=== PATIENT | male | born 1985 | race Caucasian/White ===

== ENCOUNTER 2023-11-14 07:09 | Outpatient (CLI) | payer BC, SELFPAY ==
--- NOTE | 2023-11-14 07:15 | CRLHL7_ITS ---
For Patients: As a result of the 21st Century Cures Act, medical imaging exams and procedure reports are released immediately into your electronic medical record. You may view this report before your referring provider. If you have questions, please contact your health care provider. EXAM: MRI OF THE LEFT KNEE, WITHOUT CONTRAST CLINICAL INDICATION: Left knee pain. COMPARISON PLAIN FILMS: None available at time of interpretation. COMPARISON CROSS-SECTIONAL IMAGING STUDIES: None available at time of interpretation. TECHNICAL: Axial, sagittal and coronal T1, PD, PD FS and T2 FS images. FINDINGS: MEDIAL COMPARTMENT: Medial Meniscus: Complex tear of the body of the medial meniscus which is primarily high-grade radial tear and an oblique horizontal component extending to the tibial articular surface. Articular Cartilage: Moderate chondral thinning and fissuring in the medial aspect of the medial compartment (grade 3). - LATERAL COMPARTMENT: Lateral Meniscus: Normal size and morphology without tear. Articular Cartilage: Articular surfaces appear smooth without focal articular cartilage defect or subchondral marrow changes. - PATELLOFEMORAL COMPARTMENT: Articular Cartilage: 0.6 cm focal mild chondral thinning in the lateral patellar facet (grade 2). - CRUCIATE LIGAMENTS: Anterior Cruciate Ligament: Normal. Posterior Cruciate Ligament: Normal. - MEDIAL COLLATERAL LIGAMENT AND POSTEROMEDIAL CORNER COMPLEX: Medial Collateral Ligament: Normal. Medial Head of the Gastrocnemius and Semimembranosus Tendons: Normal. - LATERAL COLLATERAL LIGAMENT COMPLEX AND POSTEROLATERAL CORNER COMPLEX: Fibular Collateral Ligament: Normal. Distal Biceps Femoris Tendon Complex: Normal. Iliotibial Band: Normal. Popliteus Tendon: Normal. Posterolateral Corner Capsule: Normal. - EXTENSOR MECHANISM: Distal Quadriceps Tendon: Normal. Patellar Tendon: Normal. Medial Patellar Retinaculum and Medial Patellofemoral Ligament: Normal. Lateral Patellar Retinaculum: Normal. Normal patellar alignment. No patella heidi. Normal trochlear depth. Normal lateral trochlear inclination. - JOINT SPACE: Effusion: Trace knee joint effusion. Small popliteal cyst. Joint Bodies: None seen. - OSSEOUS STRUCTURES: No fracture, marrow edema or marrow replacement process. - PERIARTICULAR SOFT TISSUES: Periarticular Cysts or Ganglia: None. Bursae: No prepatellar, superficial infrapatellar, deep infrapatellar, pes anserinus or semimembranosus/MCL bursitis. Musculature: No muscle atrophy or muscle edema. Subcutaneous and Soft Tissues: No subcutaneous or soft tissue mass, edema or fluid collection. Neurovascular Structures: Normal. IMPRESSION: 1. High-grade complex tear of the body of the medial meniscus. 2. 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 3. Small focal area of mild chondromalacia in the lateral patellar facet. 4. Trace knee joint effusion and small popliteal cyst. Dictated by Omari Diaz MD @ 11/14/2023 1:31:53 PM (Electronically Signed)
== END 2023-11-14 07:10 | disposition home or self-care (01) ==
LOC: MRI 07:10
PROVIDERS: PCP Family Medicine; Visit Provider Family Medicine
DX: M25.562 Pain in left knee (principal); S83.232A Complex tear of medial meniscus, current injury, left knee, initial encounter; M25.462 Effusion, left knee; M94.262 Chondromalacia, left knee
CPT/HCPCS: 73721

== ENCOUNTER 2023-11-16 09:43 | Outpatient (CLI) | payer BC, SELFPAY | END 2023-11-16 09:44 | disposition home or self-care (01) | LOC: NFLDREF 11-17 09:56 | PROVIDERS: PCP Family Medicine; Referring Provider Family Medicine; Visit Provider Family Medicine | DX: E78.5 Hyperlipidemia, unspecified (principal); E66.01 Morbid (severe) obesity due to excess calories; S83.242A Other tear of medial meniscus, current injury, left knee, initial encounter | CPT/HCPCS: 80053; 80061 ==

== ENCOUNTER 2023-12-01 09:37 | Day surgery (SDC) | payer BC, SELFPAY ==
[2023-12-01] VITALS (11 sets, daily range): BP systolic 111–134; BP diastolic 65–92; PULSE 62–77; RESP 12–16; TEMP 36.3–36.6; O2SAT 91–96; BMI 43.7
[2023-12-01] MEDS: LACTATED RINGERS 1000 ML 1,000 ML 100 ML IV (10:18)
[2023-12-01] MEDS: SODIUM CHLORIDE 0.9 % (FLUSH) 10 ML SYRINGE IVF (10:18)
[2023-12-01] MEDS: BUPIVACAINE 0.25% 30 ML INJECTION (11:38)
--- NOTE | 2023-12-01 11:52 | PM.ORPRC ---
Procedure Note Date of procedure: 12/01/23 Procedure: PREOPERATIVE DIAGNOSIS: Left knee medial meniscus tear POSTOPERATIVE DIAGNOSIS: Left knee medial meniscus tear NAME OF OPERATION: Left knee arthroscopic partial medial meniscectomy SURGEON: Cirilo Manuel MD PRINCIPAL SCIENTIST: Jw De Oliveira PA-C ANESTHESIA: Spinal ESTIMATED BLOOD LOSS: 0 mL COMPLICATIONS: None SPECIMENS: None DRAINS: None PREOPERATIVE ANTIBIOTICS: Ancef 3 gram INDICATIONS: The patient is a 38-year-old with a history of left knee medial pain. MRI scan is consistent with a medial meniscus tear. Despite appropriate nonoperative management, including activity modification, antiinflammatories, [id number] pain medication, bracing, physical therapy, and injections they continue to have pain and disability. Operative intervention was offered. The risks, benefits and expected outcomes were discussed in detail. These included but were not limited to: Infection, bleeding, injury to blood vessel or nerve, venous thromboembolism. All questions were answered to their satisfaction. PROCEDURE: Spinal anesthesia was administered. The patient was placed supine on the operating room table. The left lower extremity was prepped and draped in the usual sterile fashion. The limb was exsanguinated with the Codey bandage. The pneumatic tourniquet was inflated to 300 mmHg. A standard anterolateral portal was established. The arthroscope was introduced. The working portal was established anteromedially. Diagnostic arthroscopy was performed with findings as follows: The suprapatellar pouch is normal. Articular surface on the patella is normal. Articular surface on the trochlea is normal. The medial gutter is normal. The medial compartment shows grade 1 change on both sides of the joint. The medial meniscus has a complex tear at the junction of the posterior horn and midbody. This consists of a radial tear that nearly goes to the capsule. There is vertical longitudinal tearing that extends both anteriorly and posteriorly. Finally, there is horizontal cleavage tearing of the undersurface of the posterior horn. The notch shows the ACL to be intact. The lateral compartment shows normal articular cartilage on the lateral femoral condyle and lateral tibial plateau. The lateral meniscus is normal. The lateral gutter is normal. The midbody and posterior horn of the medial meniscus were debrided to a stable base using a combination of baskets and job through both portals. Arthroscopic instruments were removed, the portal sites were Steri-Stripped closed, the knee was infiltrated with 30 mL of 0.25% Marcaine without epinephrine. A dry dressing was applied, the tourniquet was released. Sponge and needle counts were correct x 2. The patient tolerated the procedure well. There were no apparent complications. They were carefully transferred to the hospital bed and taken to the postanesthesia care unit in satisfactory condition. PLAN: The patient will be discharged to home. They may weightbear as tolerates. Range of motion will be unrestricted. They will follow up in the office next week for a wound check.
--- NOTE | 2023-12-01 12:05 | W.ANESCHARGE ---
Anesthesia Charges Start Date/Time Anesthesia Start Date: 12/01/23 Anesthesia Start Time: 10:51 Stop Date/Time Anesthesia Stop Date: 12/01/23 Anesthesia Stop Time: 11:59
--- NOTE | 2023-12-01 12:06 | W.ANESCHARGE ---
Anesthesia Charges Start Date/Time Anesthesia Start Date: 12/01/23 Anesthesia Start Time: 10:51 Stop Date/Time Anesthesia Stop Date: 12/01/23 Anesthesia Stop Time: 11:59
== END 2023-12-01 13:40 | disposition home or self-care (01) ==
LOC: OR 09:38
PROVIDERS: PCP Family Medicine; Visit Provider Orthopaedic Surgery
PROC: (CPT 29882; principal; 2023-12-01 10:45)
DX: S83.232A Complex tear of medial meniscus, current injury, left knee, initial encounter (principal)
CPT/HCPCS: 29880; 01400; 01402; J0665; J1885; J2250; J2405; J2704; J3010; J7120

== ENCOUNTER 2024-10-29 10:03 | Outpatient (CLI) | payer BC, SELFPAY | END 2024-10-29 10:04 | disposition home or self-care (01) | PROVIDERS: PCP Family Medicine; Visit Provider Family Medicine | DX: Z00.00 Encounter for general adult medical examination without abnormal findings (principal); R53.83 Other fatigue; R40.0 Somnolence; Z13.228 Encounter for screening for other metabolic disorders; Z13.6 Encounter for screening for cardiovascular disorders | CPT/HCPCS: 80048; 80053; 80061; 85025 ==